=== PATIENT | male | born 1995 | race Caucasian/White ===

== ENCOUNTER 2019-10-12 10:33 | Emergency (ER) | payer OTHER ==
--- NOTE | 2019-10-12 12:52 | ER ---
REASON FOR EMERGENCY ROOM VISIT: Sore throat. HISTORY: This 23-year-old man comes in with a 1-week history of a sore throat. It has gotten somewhat worse over the last couple of days. It has not been accompanied by a fever, cough, headache, or runny nose. He has had some bilateral ear fullness. He has had no GI symptoms or rash. He has no history of respiratory disease of significance. He has been somewhat more tired the past couple of days. Monospot was negative. MEDICATIONS: None. ALLERGIES: NONE TO MEDICATIONS. PAST MEDICAL HISTORY: Noncontributory. PHYSICAL EXAMINATION: GENERAL: A healthy-appearing young man, in no acute distress. He is afebrile. Heart rate 63, blood pressure 113/72, respiratory rate is 12, O2 sats 98% on room air. HEENT: Head is normocephalic. TMs are normal in appearance. There is no conjunctivitis noted. Oropharynx, he does have some mild erythema, but no exudates. There is a 1 cm in a very shallow early ulceration that appears on his soft palate along his left tonsillar pillar, it has no overlying exudate. No other ulcerations are noted. NECK: Supple. No adenopathy. CHEST: Clear to auscultation with no wheezes, rhonchi, or rales. Good air exchange is noted bilaterally. CARDIAC: Regular rate without murmur. ABDOMEN: Soft, nontender. No hepatosplenomegaly. SKIN: No rashes. EXTREMITIES: Normal pulses. No edema. No cyanosis. LABORATORY DATA: His strep screen was negative. IMPRESSION: Pharyngitis, viral; possible oral herpes infection. PLAN: He has had symptoms now for a week, so antiviral medications are probably not indicated. I told him that the mainstay would be supportive treatment which would include mouthwashes including Listerine or Scope combined with gargling with salt water. Cold beverages and popsicles sometimes help to alleviate the discomfort. Cepastat spray can also be helpful for temporary symptomatic relief. Plenty of rest, clear liquids, ibuprofen or Tylenol as needed for discomfort. Should he experience worsening of his symptoms with or without fever, he should get back to us or return for a recheck. All questions were answered. He understands and agrees. DEBO /[id number]
== END 2019-10-12 12:00 | disposition home or self-care (01) ==
LOC: LB.ED 10:33
DX: J02.8 Acute pharyngitis due to other specified organisms (principal); B34.9 Viral infection, unspecified
CPT/HCPCS: 36415; 86308; 99283

== ENCOUNTER 2020-06-22 07:04 | Emergency (ER) | payer OTHER ==
[2020-06-22] MEDS ORDERED: Ciprofloxacin 0.3% Ophth Soln 2.5 ML Bottle ONE (07:30)
[2020-06-22] MEDS: Tetracaine 0.5% Ophth Soln 15 ML Bottle EYERT ONE (07:44)
[2020-06-22] MEDS: Fluorescein 1 MG Ophth Strip EYERT ONE (07:47)
--- NOTE | 2020-06-22 08:16 | EDM.PDOC ---
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 Patient wears contacts and left in for 4-5 days. Started with discomfort after exposuire to dust. Pain but no real FB sensation . Rates pain 8/10. Slightly blurred vision on the right sided. Difficult to keep eye open due to photophobia. History of similar symptoms in past due to an "ulcer" . No drainage from other other than tearing. Has redness of eye as well. Onset: Other (Yesterday in afternoon) Onset Date: 06/21/20 Onset Time: 15:00 Severity: Moderate Improves with: Reports: Other (Keeping eye closed) Worsens with: Reports: Other (Exposure to light) Associated Symptoms: Reports: Other Right Eye Pain Score (Numeric/FACES): 8 - Related Data Allergies Allergy/AdvReac Type Severity Reaction Status Date / Time No Known Allergies Allergy Verified 06/22/20 07:14 Home Meds: Home Meds NK [No Known Home Meds] 06/22/20 [History] Past Medical History HEENT History: Reports: Impaired Vision Musculoskeletal History: Reports: Fracture Other Musculoskeletal History: previous collar bone fx Social & Family History - Family History Family Medical History: Noncontributory - Tobacco Use Smoking Status *Q: Never Smoker Second Hand Smoke Exposure: No - Caffeine Use Caffeine Use: Reports: Soda - Recreational Drug Use Recreational Drug Use: No ED ROS GENERAL - Review of Systems Review Of Systems: See Below Constitutional: Reports: No Symptoms Respiratory: Reports: No Symptoms Cardiovascular: Reports: No Symptoms GI/Abdominal: Reports: No Symptoms : Reports: No Symptoms ED EXAM GENERAL W FULL EYE - Physical Exam Exam: See Below Exam Limited By: No Limitations General Appearance: Alert, WD/WN, Moderate Distress Eye Exam: Right Eye: Abnormal Pupil (pupil slightly constricted compared to left), Conjunctival Injection, Corneal Abrasion, EOMI, Vision Changes (20/30 left 20/70 Right eye), Bilateral Eye: Foreign Body (NO FB with lid eversion), Normal Fundi Visual Acuity (R) 20/: 30 Eyelids: Right: Erythema, Lid Everted for Exam, Bilateral: Normal Appearance Conjunctiva & Sclera: Right: Injected Cornea Exam: Right: Corneal Abrasion (On flourescein staining), Examined with Flourescein (Corneal abrasion over lower 1/5 of cornea), Bilateral: Foreign Body (NO FB seen) Extraocular Movements: Left: Intact Pupillary Reaction: Right: Sluggish, Left: Brisk Anterior Chamber: Right: Normal Appearance Posterior Chamber: Bilateral: Normal Funduscopic Ears: Normal TMs Nose: Normal Inspection, Normal Mucosa Throat/Mouth: Normal Inspection, Normal Lips, Normal Voice, No Airway Compromise Head: Atraumatic, Normocephalic Neck: Normal Inspection, Full Range of Motion Respiratory/Chest: No Respiratory Distress Course - Vital Signs Last Recorded V/S: Last Vital Signs Temp 97.1 F 06/22/20 07:22 Pulse 58 L 06/22/20 07:22 Resp 16 06/22/20 07:22 BP 131/83 06/22/20 07:22 Pulse Ox 98 06/22/20 07:22 - Orders/Labs/Meds Meds: Medications Discontinued Medications Generic Name Dose Route Start Last Admin Trade Name Freq PRN Reason Stop Dose Admin Ciprofloxacin 2.5 ml 06/22/20 07:30 Ciloxan 0.3% Ophth Soln .ROUTE 06/22/20 07:31 .STK-MED ONE Fluorescein Sodium 1 mg 06/22/20 07:47 06/22/20 07:47 Ful-Jada EYERT 06/22/20 07:48 1 mg ONETIME ONE Administration Tetracaine 1 ml 06/22/20 07:44 06/22/20 07:44 Tetracaine 0.5% Ophth Soln EYERT 06/22/20 07:45 1 drop ASDIRECTED ONE Administration Tetracaine drops and Flourescein used to examine the eye Patient counseled concerning expected course of healing. Departure - Departure Time of Disposition: 07:55 Disposition: Home, Self-Care 01 Clinical Impression: Corneal abrasion Qualifiers: Encounter type: initial encounter Laterality: right Qualified Code(s): S05.01XA - Injury of conjunctiva and corneal abrasion without foreign body, right eye, initial encounter - Discharge Information *PRESCRIPTION DRUG MONITORING PROGRAM REVIEWED*: Not Applicable *COPY OF PRESCRIPTION DRUG MONITORING REPORT IN PATIENT CHANO: Not Applicable Instructions: Corneal Abrasion, [id number] Referrals: PCP,None [Primary Care Provider] - Forms: ED Department Discharge Additional Instructions: *You have been given Cipro eye drops, take 1-2 drops every 2 hours while awake for 2 days *Then 1-2 drops every 4 hours while awake for 5 more days for a total of 7 days *Do not wear your contacts for 5-7 days *Take Ibuprofen 600mg 4 times a day as needed *You can patch your eye if needed, but it will not heal as quickly *It is best to stay in a dark room and wear sunglasses for at least 2 days *If symptoms have not improved by Saturday return to the ER or clinic If you have any questions or concerns please call us at [phone]
== END 2020-06-22 07:56 | disposition home or self-care (01) ==
LOC: LB.ED 07:04
DX: S05.01XA Injury of conjunctiva and corneal abrasion without foreign body, right eye, initial encounter (principal); X58.XXXA Exposure to other specified factors, initial encounter
CPT/HCPCS: 99283; A9270-GY